=== PATIENT | male | born 1955 | race Caucasian/White ===

== ENCOUNTER 2023-01-25 21:32 | Emergency (ER) | payer OTHER ==
[~2023-01-25] VITALS: Ht 177.8 cm; Wt 90.7 kg
[2023-01-25 22:09] VITALS: BP 102/67
[2023-01-25] MEDS ORDERED: LOPRESSOR5 MG/5 ML (23:01)
[2023-01-25] MEDS ORDERED: PRAMIPEXOLE ER1.5 MG (23:02)
== END 2023-01-26 00:02 | disposition home or self-care (01) ==
LOC: ER 21:32
DX: S92.421A Displaced fracture of distal phalanx of right great toe, initial encounter for closed fracture (principal); W22.8XXA Striking against or struck by other objects, initial encounter
CPT/HCPCS: 73630; A9270; J1885

== ENCOUNTER 2023-07-28 18:40 | Emergency (ER) | payer OTHER ==
[~2023-07-28] VITALS: Ht 177.8 cm; Wt 97.5 kg
[~2023-07-28 18:40] MED LIST: LOPRESSOR5 MG/5 ML; PRAMIPEXOLE ER1.5 MG
[2023-07-28 20:56] VITALS: BP 156/99
[2023-07-29] MEDS ORDERED: Benzonatate 100 MG Cap PO ONE (00:35)
[2023-07-29] MEDS ORDERED: CefTRIAXone Sodium 1,000 MG in NS 50 ML IV ONE (00:35)
[2023-07-29] MEDS ORDERED: Acetaminophen 500 MG Tab PO ONE (00:35)
[2023-07-29] MEDS ORDERED: NS 1,000 ML IV SCH (00:35)
[2023-07-29] MEDS ORDERED: Metoclopramide HCl 5MG / ML 2ML Vial IV ONE (00:35)
[2023-07-29] MEDS ORDERED: Ibuprofen 600 MG Tab PO ONE (01:55)
[2023-07-29] MEDS ORDERED: ONDA4ODT MM (01:56)
[2023-07-29] MEDS ORDERED: CEFP200 PO (01:56)
== END 2023-07-29 03:10 | disposition home or self-care (01) ==
LOC: ER 18:40
DX: N12 Tubulo-interstitial nephritis, not specified as acute or chronic (principal); J40 Bronchitis, not specified as acute or chronic; N31.9 Neuromuscular dysfunction of bladder, unspecified; I48.91 Unspecified atrial fibrillation; Z79.899 Other long term (current) drug therapy
CPT/HCPCS: 76770; 96365; 96375; 99284-25; A9270; J0696; J2765; J7030

== ENCOUNTER 2023-11-28 01:54 | Emergency (ER) | payer OTHER ==
[~2023-11-28] VITALS: Ht 177.8 cm; Wt 99.8 kg
[~2023-11-28 01:54] MED LIST changes: +CEFP200 PO; +ONDA4ODT MM; +Voltaren100 GM TOP
[2023-11-28] MEDS ORDERED: Ketorolac Tromethamine 30mg Vial IV ONE (02:30)
[2023-11-28] MEDS ORDERED: NS 1,000 ML IV SCH (02:30)
[2023-11-28] MEDS ORDERED: Methocarbamol 500 MG Tab PO ONE (02:30)
[2023-11-28] MEDS ORDERED: Ondansetron HCl 2 MG / ML 2ML Vial IV ONE (02:35)
[2023-11-28 02:42] LABS: BASOPHILS ABSOLUTE AUTO 0.02 K/mm3 (0.00-0.23); BASOPHILS PERCENT AUTO 0 % (0-2); EOSINOPHILS ABSOLUTE AUTO 0.02 K/mm3 (0.00-0.68); EOSINOPHILS PERCENT AUTO 0 % (0-6); Hematocrit 39.7 % (37.0-53.0); Hemoglobin 13.4 g/dL (13.5-17.5); IMMATURE GRAN ABSOLUTE AUTO 0.02 K/mm3 (0.00-0.10); IMMATURE GRAN PERCENT AUTO 0 % (0-1); LYMPHOCYTES ABSOLUTE AUTO 1.17 K/mm3 (0.84-5.20); LYMPHOCYTES PERCENT AUTO 15 % (21-46); MONOCYTES ABSOLUTE AUTO 0.95 K/mm3 (0.16-1.47); MONOCYTES PERCENT AUTO 12 % (4-13); Mean Corpuscular HGB 31.4 pg (26.0-34.0); Mean Corpuscular HGB Conc 33.8 g/dL (31.5-36.5); Mean Corpuscular Volume 93 fL (80-100); Mean Platelet Volume 8.2 fL (9.1-12.4); NEUTROPHILS ABSOLUTE AUTO 5.81 K/mm3 (1.96-9.15); NEUTROPHILS PERCENT AUTO 73 % (41-73); Platelet Count 175 K/mm3 (150-400); RDW Coefficient Variation 12.3 % (11.7-14.2); RDW Standard Deviation 42.3 fL (35.1-46.3); Red Blood Cell Count 4.27 M/mm3 (4.30-5.90); White Blood Cell Count 7.99 K/mm3 (4.00-11.30)
[2023-11-28] MEDS ORDERED: XARELTO20 MG PO (02:44)
[2023-11-28 02:58] LABS: Source, Urine Straight Cath
[2023-11-28 03:00] LABS: Bilirubin, Urine Neg (Neg); Blood, Urine 1+ (Neg); Glucose Qualitative, Urine Neg (Neg); Ketones, Urine Neg (Neg); Leukocyte Esterase, Urine 3+ (Neg); Nitrite, Urine Pos (Neg); Protein, Urine 1+ (Neg); Urobilinogen, Urine NORM (Normal)
[2023-11-28 03:00] LABS: Albumin, Blood 3.3 g/dL (3.4-5.0); Bilirubin, Total 1.6 mg/dL (0.1-1.0); Bun/Creatinine Ratio 11.4 (12.0-20.0); Calcium, Blood 8.7 mg/dL (8.5-10.1); Creatinine, Blood 1.14 mg/dL (0.60-1.20); Globulin, Blood 3.4 g/dL (2.2-4.0); Magnesium, Blood 2.1 mg/dL (1.6-2.4); Potassium, Blood 3.4 mmol/L (3.5-5.5); Total Protein, Blood 6.7 g/dL (6.4-8.2)
[2023-11-28] MEDS ORDERED: METO50 PO (03:03)
[2023-11-28 03:05] LABS: Appearance, Urine Hazy (Clear); Color, Urine Yellow (P-Yellow)
[2023-11-28 03:06] LABS: Bacteria Many /hpf; Mucus Light (0-Heavy); Red Blood Cells, Urine 0-2 /hpf (0-2); Squamous Epithelial Cells Few /hpf (Few); Transitional Epithelial Cells Few /hpf (0-Rare); White Blood Cells, Urine TNTC /hpf (0-5)
[2023-11-28] MEDS ORDERED: FLECAINIDE ACE150 M1 PO (03:06)
[2023-11-28 03:21] LABS: Influenza A, PCR NEGATIVE (NEGATIVE); Influenza B, PCR NEGATIVE (NEGATIVE); Resp Syncytial Virus, PCR NEGATIVE (NEGATIVE); SARS-Cov-2 (COVID-19) PCR, MMC NEGATIVE (NEGATIVE)
[2023-11-28] MEDS ORDERED: Trimethoprim/Sulfamethoxazole DS Tab PO ONE (04:05)
[2023-11-28] MEDS ORDERED: SULTRIDS PO (04:07)
[2023-11-28 04:20] VITALS: BP 109/61
== END 2023-11-28 04:25 | disposition home or self-care (01) ==
LOC: ER 01:54
PROVIDERS: Student in an Organized Health Care Education/Training Program
DX: N39.0 Urinary tract infection, site not specified (principal); N31.9 Neuromuscular dysfunction of bladder, unspecified; I48.91 Unspecified atrial fibrillation; Z96.0 Presence of urogenital implants; Z79.899 Other long term (current) drug therapy
CPT/HCPCS: 0241U; 71046; 80053; 81001; 83735; 85025; 87077; 87086; 87186; 93005; 93010; 96361; 96374; 96375; 99285-25; A9270; J1885; J2405; J7030

== ENCOUNTER 2024-01-07 13:40 | Emergency (ER) | payer OTHER ==
[~2024-01-07] VITALS: Ht 177.8 cm; Wt 99.8 kg
[~2024-01-07 13:40] MED LIST changes: +FLECAINIDE ACE150 M1 PO; +METO50 PO; +SULTRIDS PO; +XARELTO20 MG PO
[2024-01-07] MEDS ORDERED: Famotidine 20 MG Tab PO ONE (14:00)
[2024-01-07] MEDS ORDERED: DiphenhydrAMINE HCl 50 MG/ML 1ML Vial IV ONE (14:00)
[2024-01-07 14:25] LABS: BASOPHILS ABSOLUTE AUTO 0.03 K/mm3 (0.00-0.23); BASOPHILS PERCENT AUTO 0 % (0-2); EOSINOPHILS ABSOLUTE AUTO 0.04 K/mm3 (0.00-0.68); EOSINOPHILS PERCENT AUTO 1 % (0-6); Hematocrit 38.9 % (37.0-53.0); IMMATURE GRAN ABSOLUTE AUTO 0.02 K/mm3 (0.00-0.10); IMMATURE GRAN PERCENT AUTO 0 % (0-1); LYMPHOCYTES ABSOLUTE AUTO 1.02 K/mm3 (0.84-5.20); LYMPHOCYTES PERCENT AUTO 12 % (21-46); MONOCYTES ABSOLUTE AUTO 0.43 K/mm3 (0.16-1.47); MONOCYTES PERCENT AUTO 5 % (4-13); Mean Corpuscular HGB 31.8 pg (26.0-34.0); Mean Corpuscular HGB Conc 33.4 g/dL (31.5-36.5); Mean Corpuscular Volume 95 fL (80-100); Mean Platelet Volume 8.4 fL (9.1-12.4); NEUTROPHILS ABSOLUTE AUTO 7.17 K/mm3 (1.96-9.15); NEUTROPHILS PERCENT AUTO 82 % (41-73); Platelet Count 198 K/mm3 (150-400); RDW Coefficient Variation 12.4 % (11.7-14.2); RDW Standard Deviation 43.3 fL (35.1-46.3); Red Blood Cell Count 4.09 M/mm3 (4.30-5.90); White Blood Cell Count 8.71 K/mm3 (4.00-11.30)
[2024-01-07 14:56] LABS: C-REACTIVE PROTEIN, EXT RANGE <0.290 mg/dL (0.000-0.300)
[2024-01-07 14:57] LABS: Alanine Aminotransfer (ALT/SGP 24 U/L (12-78); Albumin, Blood 2.9 g/dL (3.4-5.0); Albumin/Globulin Ratio 1.1 (0.8-1.8); Alk Phos 105 U/L (50-136); Anion Gap 6 mmol/L (3-11); Aspartate Aminotrans (AST/SGOT 19 U/L (12-37); Bilirubin, Total 1.1 mg/dL (0.1-1.0); Blood Urea Nitrogen 9 mg/dL (8-24); Bun/Creatinine Ratio 8.7 (12.0-20.0); CO2, Blood 26 mmol/L (21-32); Calcium, Blood 7.8 mg/dL (8.5-10.1); Chloride, Blood 113 mmol/L (98-108); Creatinine, Blood 1.04 mg/dL (0.60-1.20); Globulin, Blood 2.7 g/dL (2.2-4.0); Glomerular Filtration Rate 79 (60-); Glucose, Blood 93 mg/dL (70-99); Potassium, Blood 3.7 mmol/L (3.5-5.5); Sodium, Blood 141 mmol/L (136-145); Total Protein, Blood 5.6 g/dL (6.4-8.2)
[2024-01-07 15:15] VITALS: BP 144/82
[2024-01-07] MEDS ORDERED: Pramipexole DI-HCL 1 Mg Tab PO ONE (15:20)
== END 2024-01-07 15:35 | disposition home or self-care (01) ==
LOC: ER 13:40
PROVIDERS: Physician Assistant
DX: T78.40XA Allergy, unspecified, initial encounter (principal); G25.81 Restless legs syndrome; Z91.030 Bee allergy status; Z79.899 Other long term (current) drug therapy; I48.91 Unspecified atrial fibrillation
CPT/HCPCS: 80053; 83690; 85025; 86140; 96374; 99285-25; A9270; J1200

== ENCOUNTER 2024-02-18 14:43 | Emergency (ER) | payer OTHER ==
[~2024-02-18] VITALS: Ht 177.8 cm; Wt 99.8 kg
[2024-02-18 15:34] VITALS: BP 111/65
[2024-02-18] MEDS ORDERED: Tetracaine HCl/Pf 0.5% Opth Soln 4 ml RIGHTEYE ONE (15:50)
[2024-02-18] MEDS ORDERED: Fluorescein Sod 1MG Opth Strips RIGHTEYE ONE (15:50)
[2024-02-18] MEDS ORDERED: Erythromycin 0.5% Opth Oint 1 gm LEFTEYE ONE (17:45)
== END 2024-02-18 18:10 | disposition home or self-care (01) ==
LOC: ER 14:43
DX: T15.02XA Foreign body in cornea, left eye, initial encounter (principal); I48.91 Unspecified atrial fibrillation; Z79.899 Other long term (current) drug therapy; Z91.030 Bee allergy status
CPT/HCPCS: 65205; 99282-25; A9270